=== PATIENT | female | born 1955 | race Caucasian/White ===

== ENCOUNTER → 2021-02-20 | Outpatient (CLI) | payer BC ==
[~2021-02-20] MED LIST: ALBU8.5H INH; ANOR1AER INH; ASPI81CH33 PO; ATOR1TAB21 PO; BISO5TAB14 PO; CLON0.5T2 PO; CLOP75TA2 PO; LEVOTAB10 PO; PEPC1TAB5 PO; ZOLP5TAB PO
== END ==
LOC: M LABSMTC 11:17
PROVIDERS: ATTEND Anesthesiology
DX: Z01.812 Encounter for preprocedural laboratory examination (principal); Z11.52 Encounter for screening for COVID-19

== ENCOUNTER 2021-02-25 11:46 | Day surgery (SDC) | payer MEDICARE, OTHER ==
[~2021-02-25] VITALS: Ht 160 cm; Wt 63.9 kg
[~2021-02-25 11:46] MED LIST changes: +LIDOCAINE 2% 100MG/5ML SDV (FOR ANES.) As Ordered ONE; +NS 1,000 ML IV ONE; +fentaNYL 100 MCG/2 ML INJECTION (J3010) As Ordered ONE; +propofoL 200 MG/20 ML VIAL As Ordered ONE
[2021-02-25] MEDS ORDERED: ePHEDrine SULFATE 25 MG/5 ML(5MG/ML) SYRINGE As Ordered ONE (13:12)
[2021-02-25 13:47] VITALS: BP 88/52
--- NOTE | 2021-02-25 13:47 | ROOR ---
Patient Name: Lorie Napier Procedure Date: 02/25/2021 12:49 PM Date of : 1955 Age: 65 Room: [facility] Gender: Female Note Status: Finalized Procedure: Upper GI endoscopy Indications: Heartburn Providers: Romain Matthews MD Referring MD: Ella Field MD Requesting Provider: Medicines: Monitored Anesthesia Care Complications: No immediate complications. Procedure: Pre-Anesthesia Assessment: - Prior to the procedure, a History and Physical was performed, and patient medications and allergies were reviewed. The patient is competent. The risks and benefits of the procedure and the sedation options and risks were discussed with the patient. All questions were answered and informed consent was obtained. Patient identification and proposed procedure were verified by the physician, the nurse and the anesthesiologist in the procedure room. Mental Status Examination: alert and oriented. Airway Examination: normal oropharyngeal airway and neck mobility. Respiratory Examination: clear to auscultation. CV Examination: normal. Prophylactic Antibiotics: The patient does not require prophylactic antibiotics. Prior Anticoagulants: The patient has taken Plavix (clopidogrel), last dose was 1 day prior to procedure. ASA Grade Assessment: II - A patient with mild systemic disease. After reviewing the risks and benefits, the patient was deemed in satisfactory condition to undergo the procedure. The anesthesia plan was to use monitored anesthesia care (MAC). Immediately prior to administration of medications, the patient was re-assessed for adequacy to receive sedatives. The heart rate, respiratory rate, oxygen saturations, blood pressure, adequacy of pulmonary ventilation, and response to care were monitored throughout the procedure. The physical status of the patient was re-assessed after the procedure. The Endoscope was introduced through the mouth, and advanced to the second part of duodenum. The upper GI endoscopy was accomplished without difficulty. The patient tolerated the procedure well. Findings: LA Grade A (one or more mucosal breaks less than 5 mm, not extending between tops of 2 mucosal folds) esophagitis with no bleeding was found at the gastroesophageal junction. There is no endoscopic evidence of ulcerations or mass in the entire esophagus. Patchy moderate inflammation characterized by adherent blood, erythema and granularity was found in the gastric antrum. Biopsies were taken with a cold forceps for Helicobacter pylori testing. Verification of patient identification for the specimen was done by the physician and nurse using the patient's name, date and medical record number. Estimated blood loss was minimal. One 15 mm sessile polyp with no bleeding was found in the first portion of the duodenum. Biopsies were taken with a cold forceps for histology. Impression: - LA Grade A reflux esophagitis. - Gastritis. Biopsied. - One duodenal polyp. Biopsied. Recommendation: - Patient has a contact number available for emergencies. The signs and symptoms of potential delayed complications were discussed with the patient. Return to normal activities tomorrow. Written discharge instructions were provided to the patient. - High fiber diet. - Continue present medications. - Continue Plavix (clopidogrel) at prior dose. - Await pathology results. - Use Prilosec (omeprazole) 40 mg PO daily for 6 weeks. - Follow an antireflux regimen. - Telephone GI clinic for pathology results in 2 weeks. - Return to primary care physician. Procedure Code(s): --- Professional --- 86304, Esophagogastroduodenoscopy, flexible, transoral; with biopsy, single or multiple Diagnosis Code(s): --- Professional --- K21.0, Gastro-esophageal reflux disease with esophagitis K29.70, Gastritis, unspecified, without bleeding K31.7, Polyp of stomach and duodenum R12, Heartburn CPT copyright 2019 [employer]. All rights reserved. The codes documented in this report are preliminary and upon rn anesthesiology review may be revised to meet current compliance requirements. Romain Matthews MD Romain Matthews MD 02/25/2021 1:47:25 PM Electronically signed by Romain Matthews MD Number of Addenda: 0 Note Initiated On: 02/25/2021 12:49 PM Estimated Blood Loss: Estimated blood loss was minimal. Estimated blood loss: none.
== END 2021-02-25 14:05 | disposition home or self-care (01) ==
LOC: M OPP 11:46
PROVIDERS: ATTEND Internal Medicine Gastroenterology
DX: K21.00 Gastro-esophageal reflux disease with esophagitis, without bleeding (principal); K29.70 Gastritis, unspecified, without bleeding; K31.7 Polyp of stomach and duodenum; R12 Heartburn; R93.3 Abnormal findings on diagnostic imaging of other parts of digestive tract; Z79.82 Long term (current) use of aspirin; Z79.899 Other long term (current) drug therapy; Z88.8 Allergy status to other drugs, medicaments and biological substances; F17.210 Nicotine dependence, cigarettes, uncomplicated
CPT/HCPCS: 43239; 88305; J3010

== ENCOUNTER → 2022-06-27 | Outpatient (CLI) | payer OTHER ==
[~2022-06-27] MED LIST changes: -LIDOCAINE 2% 100MG/5ML SDV (FOR ANES.) As Ordered ONE; -NS 1,000 ML IV ONE; -fentaNYL 100 MCG/2 ML INJECTION (J3010) As Ordered ONE; -propofoL 200 MG/20 ML VIAL As Ordered ONE
== END ==
LOC: M PLARAD 11:51
PROVIDERS: ATTEND Internal Medicine Critical Care Medicine
DX: R91.8 Other nonspecific abnormal finding of lung field (principal)
CPT/HCPCS: 78815; A9552

== ENCOUNTER 2022-10-04 11:22 | Day surgery (SDC) | payer OTHER ==
[~2022-10-04] VITALS: Ht 162.6 cm; Wt 65.2 kg
[~2022-10-04 11:22] MED LIST changes: +NS 1,000 ML IV ONE; +TUMS500C PO
[2022-10-04] MEDS ORDERED: propofoL 200 MG/20 ML VIAL As Ordered ONE (14:06)
[2022-10-04] MEDS ORDERED: fentaNYL 100 MCG/2 ML INJECTION As Ordered ONE (14:10)
[2022-10-04 14:49] VITALS: BP 118/74
== END 2022-10-04 14:53 | disposition home or self-care (01) ==
LOC: M OPP 11:22
PROVIDERS: ATTEND Internal Medicine Gastroenterology
DX: K44.9 Diaphragmatic hernia without obstruction or gangrene (principal); K21.9 Gastro-esophageal reflux disease without esophagitis; K31.89 Other diseases of stomach and duodenum; Z79.02 Long term (current) use of antithrombotics/antiplatelets; Z79.51 Long term (current) use of inhaled steroids; Z79.82 Long term (current) use of aspirin; Z79.899 Other long term (current) drug therapy; F17.220 Nicotine dependence, chewing tobacco, uncomplicated
CPT/HCPCS: 43239; 88305; J3010

== ENCOUNTER 2022-11-23 07:30 | Inpatient (IN) | payer OTHER, MEDICARE ==
[~2022-11-23] VITALS: Ht 162.6 cm; Wt 64.6 kg
[~2022-11-23 07:30] MED LIST changes: +FAMO20TA5 PO; -NS 1,000 ML IV ONE; +ceFAZolin SOD 2 GM in IV 1 EA IV ONE
[2022-12-14] MEDS ORDERED: PANT20TA6 PO (08:11)
[2022-12-14] MEDS ORDERED: SUCR1TAB56 PO (08:11)
[2022-12-21] MEDS ORDERED: ceFAZolin SOD 2 GM in IV 1 EA IV ONE (06:00)
[2022-12-21] MEDS ORDERED: LR 1,000 ML IV SCH ×2 (11:25→17:05)
[2022-12-21] MEDS ORDERED: ROCURONIUM BROMIDE 50MG/5ML VIAL As Ordered ONE (11:40)
[2022-12-21] MEDS ORDERED: MIDAZOLAM INJ 2MG/2ML VIAL As Ordered ONE (11:40)
[2022-12-21] MEDS ORDERED: SUGAMMADEX SODIUM 500 MG/5 ML VIAL (BRIDION) As Ordered ONE (11:40)
[2022-12-21] MEDS ORDERED: propofoL 200 MG/20 ML VIAL As Ordered ONE (11:40)
[2022-12-21] MEDS ORDERED: fentaNYL 100 MCG/2 ML INJECTION As Ordered ONE (11:40)
[2022-12-21] MEDS ORDERED: LIDOCAINE 2% 100MG/5ML SDV (FOR ANES.) As Ordered ONE (11:43)
[2022-12-21] MEDS ORDERED: ONDANSETRON 4MG 2ML VIAL As Ordered ONE (11:43)
[2022-12-21] MEDS ORDERED: ALBU2.5V10 INH (12:02)
[2022-12-21] MEDS ORDERED: ZOLP5TAB PO (12:02)
[2022-12-21] MEDS ORDERED: HOME MED LIST COMPLETE! XX SCH (12:05)
[2022-12-21] MEDS ORDERED: IPRATROPIUM 0.5MG/ALBUTEROL 2.5MG INH SOL UD 3ML (DUONEB) NEB ONE (12:25)
[2022-12-21] MEDS ORDERED: ACETAMINOPHEN 1000MG 100ML IV BAG As Ordered ONE (12:42)
[2022-12-21] MEDS ORDERED: KETAMINE HCL 200MG/20ML VIAL As Ordered ONE (12:42)
[2022-12-21] MEDS ORDERED: MANNITOL 25% 12.5GM 50ML VIAL As Ordered ONE (12:49)
[2022-12-21] MEDS ORDERED: LIDOCAINE 1% SDV 30ML VIAL As Ordered ONE (12:50)
[2022-12-21] MEDS: NS 1,000 ML IV SCH ×2 (13:00→22:12)
[2022-12-21] MEDS ORDERED: PERCOCET 5MG/325MG TAB PO PRN ×2 (13:00)
[2022-12-21] MEDS ORDERED: ALBUTEROL 90 MCG/ACT 8GM HFA INHALER INH PRN (13:00)
[2022-12-21] MEDS ORDERED: ACETAMINOPHEN TAB 650MG DOSE (2X325MG) PO PRN (13:00)
[2022-12-21] MEDS ORDERED: ONDANSETRON 4MG 2ML VIAL IV PRN ×2 (13:00→17:05)
[2022-12-21] MEDS ORDERED: PHENYLephrine 500MCG 5ML (100MCG/ML) SYRINGE As Ordered ONE (13:54)
[2022-12-21] MEDS ORDERED: ePHEDrine SULFATE 25 MG/5 ML(5MG/ML) SYRINGE As Ordered ONE ×2 (13:54→17:33)
[2022-12-21] MEDS ORDERED: HYDROMORPHONE HCL 0.5 MG/ 0.5 ML SYRINGE IV PRN (17:05)
[2022-12-21] MEDS ORDERED: oxyCODONE 5MG TAB PO PRN (17:05)
[2022-12-21] MEDS ORDERED: ALBUTEROL 6.7GM INHALER **FOR ANES. CART/OMNICELL ONLY As Ordered ONE (17:11)
[2022-12-21] MEDS ORDERED: GLYCOPYRROLATE INJ 0.2 MG/ML 2 ML VIAL As Ordered ONE (17:33)
[2022-12-21 18:32] LABS: HEMATOCRIT 42.8 % (36.0-47.0); HEMOGLOBIN 13.9 g/dl (12.0-15.5); MEAN CORPUSCULAR HEMOGLOBIN 30.6 pg (27.0-33.0); MEAN CORPUSCULAR HGB CONC 32.5 g/dl (32.0-36.5); MEAN CORPUSCULAR VOLUME 94.3 fl (80.0-96.0); PLATELET COUNT, AUTOMATED 306 10^3/uL (150-450); RED BLOOD COUNT 4.54 10^6/uL (4.00-5.40); WHITE BLOOD COUNT 10.7 10^3/uL (4.0-10.0)
[2022-12-21 18:39] LABS: BLOOD UREA NITROGEN 14 MG/DL (9-23); CALCIUM LEVEL 8.3 MG/DL (8.3-10.6); CARBON DIOXIDE LEVEL 27 MMOL/L (20-31); CHLORIDE LEVEL 106 MMOL/L (98-107); CREATININE FOR GFR 0.89 MG/DL (0.55-1.30); GLOMERULAR FILTRATION RATE > 60.0 (>45); GLUCOSE, FASTING 147 MG/DL (74-106); POTASSIUM SERUM 4.4 MMOL/L (3.5-5.1); SODIUM LEVEL 140 MMOL/L (136-145)
[2022-12-21] MEDS: fentaNYL 100 MCG/2 ML INJECTION IV PRN ×2 (19:06→19:16)
[2022-12-21 20:19] VITALS: BP 151/75; TEMP 97.9; O2SAT 89
[2022-12-21 20:49] VITALS: BP 148/72; TEMP 97.7; O2SAT 92
[2022-12-21] MEDS ORDERED: ATORVASTATIN 20 MG TAB PO SCH (21:00)
[2022-12-21] MEDS ORDERED: bisoproloL fumarate 5 MG TAB PO SCH (21:00)
[2022-12-21] MEDS ORDERED: ASPIRIN 81MG ENTERIC TABLET PO SCH (21:00)
[2022-12-21 21:19] VITALS: BP 155/70; TEMP 97.7; O2SAT 94
[2022-12-21] MEDS: DOCUSATE SODIUM 100MG CAPSULE PO SCH (21:44)
[2022-12-21] MEDS: SUCRALFATE 1 GM TAB PO SCH (21:44)
[2022-12-21] MEDS: PANTOPRAZOLE 20 MG TAB PO SCH (21:44)
[2022-12-21 21:45] VITALS: BP 152/67
[2022-12-21] MEDS: ceFAZolin SOD 1 GM in D5W MINI-BAG PLUS 50 ML IV SCH (21:45)
[2022-12-21] MEDS: clonazePAM 0.5 MG TAB PO PRN (21:45)
[2022-12-21 22:19] VITALS: BP 148/66; TEMP 97.3; O2SAT 94
[2022-12-21 23:19] VITALS: BP 151/69; TEMP 97.9; O2SAT 89
[2022-12-22 00:19] VITALS: BP 153/70; TEMP 97.9; O2SAT 90
[2022-12-22 01:19] VITALS: BP 136/60; TEMP 97.7; O2SAT 85
[2022-12-22] MEDS: ceFAZolin SOD 1 GM in D5W MINI-BAG PLUS 50 ML IV SCH (04:03)
[2022-12-22 05:19] VITALS: BP 130/57; TEMP 97.3; O2SAT 89
[2022-12-22 06:05] LABS: HEMATOCRIT 43.9 % (36.0-47.0); HEMOGLOBIN 14.2 g/dl (12.0-15.5); MEAN CORPUSCULAR HEMOGLOBIN 30.7 pg (27.0-33.0); MEAN CORPUSCULAR HGB CONC 32.3 g/dl (32.0-36.5); MEAN CORPUSCULAR VOLUME 94.8 fl (80.0-96.0); PLATELET COUNT, AUTOMATED 352 10^3/uL (150-450); RED BLOOD COUNT 4.63 10^6/uL (4.00-5.40); WHITE BLOOD COUNT 12.7 10^3/uL (4.0-10.0)
[2022-12-22] MEDS: clonazePAM 0.5 MG TAB PO PRN (06:15)
[2022-12-22 06:40] LABS: BLOOD UREA NITROGEN 13 MG/DL (9-23); CALCIUM LEVEL 8.9 MG/DL (8.3-10.6); CARBON DIOXIDE LEVEL 26 MMOL/L (20-31); CHLORIDE LEVEL 105 MMOL/L (98-107); CREATININE FOR GFR 0.84 MG/DL (0.55-1.30); GLOMERULAR FILTRATION RATE > 60.0 (>45); GLUCOSE, FASTING 129 MG/DL (74-106); POTASSIUM SERUM 4.7 MMOL/L (3.5-5.1); SODIUM LEVEL 141 MMOL/L (136-145)
[2022-12-22] MEDS: DOCUSATE SODIUM 100MG CAPSULE PO SCH (08:45)
[2022-12-22] MEDS: SUCRALFATE 1 GM TAB PO SCH (08:45)
[2022-12-22] MEDS: PANTOPRAZOLE 20 MG TAB PO SCH (08:45)
[2022-12-22 09:19] VITALS: BP 120/54; TEMP 97.5; O2SAT 92
[2022-12-22 13:19] VITALS: BP 116/52; TEMP 97.7; O2SAT 89
[2022-12-22] MEDS ORDERED: COLA100C5 PO (13:33)
[2022-12-22] MEDS ORDERED: PERCOCET PO (13:33)
== END 2022-12-22 15:35 | disposition home or self-care (01) | DRG 658 ==
LOC: M OR 12-21 10:49 → ENRESERV 12-21 16:58 → M MSPAV 12-21 20:25
PROVIDERS: ADMIT Urology; ATTEND Urology
PROC: 8E0W4CZ Robotic Assisted Procedure of Trunk Region, Percutaneous Endoscopic Approach (ICD-10-PCS; 2022-12-21)
PROC: 0TB04ZZ Excision of Right Kidney, Percutaneous Endoscopic Approach (ICD-10-PCS; principal; 2022-12-21 12:30)
DX: C64.1 Malignant neoplasm of right kidney, except renal pelvis (principal); I10 Essential (primary) hypertension; K21.9 Gastro-esophageal reflux disease without esophagitis; J44.9 Chronic obstructive pulmonary disease, unspecified; Z79.02 Long term (current) use of antithrombotics/antiplatelets; Z79.82 Long term (current) use of aspirin; Z79.84 Long term (current) use of oral hypoglycemic drugs

== ENCOUNTER → 2024-06-26 | Outpatient (REF) | payer OTHER, MEDICARE ==
[~2024-06-26] MED LIST changes: +ALBU2.5V10 INH; +COLA100C5 PO; +PANT20TA6 PO; +PERCOCET PO; +SUCR1TAB56 PO; -ceFAZolin SOD 2 GM in IV 1 EA IV ONE
== END ==
LOC: M LAB REF 17:17
PROVIDERS: ATTEND Internal Medicine Critical Care Medicine
DX: F17.218 Nicotine dependence, cigarettes, with other nicotine-induced disorders (principal)

== ENCOUNTER → 2025-01-09 | Outpatient (CLI) | payer OTHER ==
[~2025-01-09] MED LIST changes: +ISOVUE-370 76% 100 ML VIAL ONE
== END ==
LOC: M PLAIMG 10:42
PROVIDERS: ATTEND Urology
DX: C64.1 Malignant neoplasm of right kidney, except renal pelvis (principal); J43.9 Emphysema, unspecified; K80.20 Calculus of gallbladder without cholecystitis without obstruction; K59.00 Constipation, unspecified
CPT/HCPCS: 74170; Q9967